=== PATIENT | female | born 1945 | race Caucasian/White ===

== ENCOUNTER 2017-07-07 09:55 | Emergency (ER) | payer MEDICARE, OTHER | END 2017-07-07 11:41 | disposition home or self-care (01) | LOC: NAV ER/OP 09:55 → NAV ERS 11:41 | DX: T63.461A Toxic effect of venom of wasps, accidental (unintentional), initial encounter (principal); I48.91 Unspecified atrial fibrillation; Z79.891 Long term (current) use of opiate analgesic; Z79.899 Other long term (current) drug therapy | CPT/HCPCS: 99283 ==

== ENCOUNTER 2020-10-13 15:17 | Emergency (ER) | payer MEDICARE, OTHER ==
[2020-10-13] MEDS ORDERED: Boostrix 0.5 ML (Tdap) VIAL ONE (16:06)
[2020-10-13] MEDS ORDERED: predniSONE 20 MG TAB ONE (16:06)
== END 2020-10-13 16:58 | disposition home or self-care (01) ==
LOC: NAV ERS 15:17
DX: T63.441A Toxic effect of venom of bees, accidental (unintentional), initial encounter (principal); I48.91 Unspecified atrial fibrillation; E78.5 Hyperlipidemia, unspecified; I10 Essential (primary) hypertension; Z79.899 Other long term (current) drug therapy
CPT/HCPCS: 90471; 90715; J7512